=== PATIENT | female | born 1995 | race Two or more races ===

== ENCOUNTER 2024-03-02 17:43 | Emergency (ER) | payer OTHER ==
[2024-03-02 18:00] VITALS: BP 113/82; RESP 18; TEMP 98.3; BMI 36.9
[2024-03-02 18:47] VITALS: PULSE 107
[2024-03-02] MEDS ORDERED: ACETAMINOPHEN 500 MG TABLET (FP) ONE (19:37)
[2024-03-02] MEDS ORDERED: BACITRACIN ZINC 15 GM TUBE TOPICAL OINTMENT ONE (19:37)
[2024-03-02] MEDS ORDERED: DIPHTH,PERTUSS(ACELL),TET 0.5 ML DISP.SYRIN IM ONE (19:38)
[2024-03-02] MEDS: ACETAMINOPHEN 500 MG TABLET (FP) PO ONE (19:50)
[2024-03-02] MEDS: DIPHTH,PERTUSS(ACELL),TET 0.5 ML DISP.SYRIN IM ONE (19:50)
[2024-03-02] MEDS: BACITRACIN ZINC 15 GM TUBE TOPICAL OINTMENT TP ONE (19:51)
[2024-03-02 20:41] LABS: PH,URINE 5.5 (5.0-8.0); URINE APPEARANCE CLEAR; URINE BILIRUBIN NEGATIVE (NEGATIVE); URINE COLOR YELLOW; URINE GLUCOSE (UA) NEGATIVE (NEGATIVE); URINE KETONE NEGATIVE (NEGATIVE); URINE LEUK ESTERASE NEGATIVE (NEGATIVE); URINE NITRITE NEGATIVE (NEGATIVE); URINE PROTEIN NEGATIVE (NEGATIVE); URINE UROBILINOGEN 0.2 mg/dL (0.2-1.0)
[2024-03-02 20:44] LABS: HCG,QUALITATIVE URINE Negative
== END 2024-03-02 20:58 | disposition home or self-care (01) ==
LOC: JER 17:43
PROC: 3E0234Z Introduction of Serum, Toxoid and Vaccine into Muscle, Percutaneous Approach (ICD-10-PCS; principal; 2024-03-02)
DX: S00.511A Abrasion of lip, initial encounter (principal); M79.10 Myalgia, unspecified site; Z23 Encounter for immunization; Y04.8XXA Assault by other bodily force, initial encounter
CPT/HCPCS: 81003; 84703; 90471; 90715; 99283-25

== ENCOUNTER 2025-01-15 16:22 | Emergency (ER) | payer OTHER ==
[2025-01-15 16:38] VITALS: BMI 37.5
[2025-01-15] MEDS ORDERED: ONDANSETRON 4 MG/2 ML VIAL ONE (17:34)
[2025-01-15] MEDS: ONDANSETRON 4 MG/2 ML VIAL IVPUSH ONE (17:36)
[2025-01-15] MEDS: SODIUM CHLORIDE 0.9% 500 ML INFUS.BAG IV ONE (17:36)
[2025-01-15 17:46] LABS: ABSOLUTE IMMATURE GRANULOCYTES 0.05 x10^3/uL (0.0-0.031); BASOPHILS # 0.03 x10^3/uL (0.01-0.08); EOSINOPHIL % 1.1 % (0.7-5.8); EOSINOPHILS # 0.16 x10^3/uL (0.04-0.36); MCHC 31.9 g/dl (32.2-35.5); MEAN CELL VOLUME 81.2 fl (79.4-94.8); MEAN PLT VOLUME 10.1 fl (9.4-12.3); MONOCYTE # 0.40 x10^3/uL (0.24-0.86); MONOCYTE % 2.7 % (4.7-12.5); RDW 14.6 % (12.1-16.8)
[2025-01-15 18:11] LABS: CO2 25.0 mmol/L (21-32); GLUCOSE,RANDOM 95.0 mg/dL (74-106)
[2025-01-15 18:14] LABS: CREATININE 0.7 mg/dL (0.55-1.3); SGOT/AST 28.0 U/L (15-37); SGPT/ALT 50.0 U/L (13-61)
[2025-01-15 18:16] LABS: TOT PROT 8.2 g/dl (6.4-8.2)
[2025-01-15 18:17] LABS: ALK PHOS 95.0 U/L (45-117)
[2025-01-15] MEDS ORDERED: ACETAMINOPHEN 500 MG TABLET (FP) ONE (20:22)
[2025-01-15] MEDS: ACETAMINOPHEN 500 MG TABLET (FP) PO ONE (20:23)
[2025-01-15 21:24] VITALS: BP 110/82; PULSE 86; RESP 18; TEMP 98.5
[2025-01-15 23:40] LABS: HIV INTERPRETATION NEGATIVE (NEGATIVE)
[2025-01-16 20:20] LABS: HCV DIAGNOSTIC IN-HOUSE W/RFLX NON-REACTIVE (NONREACTIVE)
== END 2025-01-15 22:32 | disposition home or self-care (01) ==
LOC: JER 16:22
PROC: 3E033GC Introduction of Other Therapeutic Substance into Peripheral Vein, Percutaneous Approach (ICD-10-PCS; principal; 2025-01-15)
DX: R11.2 Nausea with vomiting, unspecified (principal); R42 Dizziness and giddiness; R10.11 Right upper quadrant pain
CPT/HCPCS: 36415; 76705-TC; 80053; 83690; 85025; 86803; 87389; 99285-25